=== PATIENT | female | born 1985 | race Caucasian/White ===

== ENCOUNTER 2017-06-05 17:40 | Emergency (ER) | payer MEDICAID ==
[~2017-06-05] VITALS: Ht 172.7 cm; Wt 90.7 kg
--- NOTE | 2017-06-05 18:50 | NUR ---
Pt resting in gurney with eyes closed, easily aroused with verbal stimuli. No s/s of acute distress noted at this time. Pt remains a/o x4, states she is unable to provide a urine specimen at this time.
[2017-06-05 19:13] LABS: BASOPHILS # (AUTO) 0.2 K/uL (0.0-8.0); BASOPHILS % (AUTO) 1.6 % (0.0-2.0); EOSINOPHILS % (AUTO) 0.2 % (0.0-7.0); HEMATOCRIT 42.7 % (37-47); HEMOGLOBIN 14.4 G/DL (12.0-16.0); LYMPHOCYTES # (AUTO) 1.5 K/UL (0.8-4.8); LYMPHOCYTES % (AUTO) 12.7 % (20.5-51.5); MEAN CORPUSCULAR HGB CONC 34 g/dL (32.0-37.0); MEAN CORPUSCULAR VOLUME 92.3 FL (81.0-99.0); MONOCYTES # (AUTO) 0.9 K/UL (0.1-1.30); NEUTROPHILS # (AUTO) 9.6 K/UL (1.8-8.9); NEUTROPHILS % (AUTO) 78.5 % (38.5-71.5); PLATELET COUNT (AUTO) 193 K/UL (150-450); RED BLOOD CELL COUNT(AUTO) 4.63 MIL/UL (4.2-5.4); WHITE BLOOD COUNT (AUTO) 12.2 K/UL (4.0-11.2)
--- NOTE | 2017-06-05 19:15 | NUR ---
Received report from SILVIA Mcfarland. Assumed care of pt at this time. Pt resting in position of comfort for self. No obvious signs of distress at this time.
[2017-06-05 19:27] LABS: ETHANOL < 3 MG/DL (0-0)
[2017-06-05 19:31] LABS: ACETAMINOPHEN < 2.0 ug/mL (10-30); ALANINE AMINOTRANSFERASE 16 U/L (14-59); ALKALINE PHOSPHATASE 46 U/L (50-136); ASPARTATE AMINOTRANSFERASE 14 U/L (15-37); BILIRUBIN,DIRECT 0.1 mg/dL (0.0-0.2); BILIRUBIN,TOTAL 0.4 mg/dL (0.2-1.0); CARBON DIOXIDE 24 mmol/L (21-32); CHLORIDE 104 mmol/L (98-107); CREATININE 0.9 mg/dL (0.6-1.3); GLUCOSE 112 mg/dL (74-106); POTASSIUM 4.2 mmol/L (3.5-5.1); TOTAL PROTEIN, SERUM 6.9 g/dL (6.4-8.2); UREA NITROGEN, BLOOD 5 mg/dL (7-18)
--- NOTE | 2017-06-05 19:47 | NUR ---
Pt ambulated to br with steady gait. UA collected and sent. Pt returned to bed, resting in position of comfort for self. No complaints at this time.
--- NOTE | 2017-06-05 19:55 | NUR ---
Pt medically cleared for psych evaluation
--- NOTE | 2017-06-05 19:57 | NUR ---
Spoke with Eusebio and Art for psych eval for gravely disable per Dr. Mejia, awaiting call back.
--- NOTE | 2017-06-05 19:59 | NUR ---
Art to do the psych evaluation, eta approx [id number]. Dr. Mejia notified
[2017-06-05 20:02] LABS: *BILIRUBIN,URIN NEGATIVE (NEGATIVE); *BLOOD, URINE 3+ (NEGATIVE); *COLOR,URINE YELLOW (YELLOW); *KETONES,URINE NEGATIVE (NEGATIVE); *PROTEIN,URINE NEGATIVE (NEGATIVE); *UROBILINOGEN,URINE 0.2 E.U./dl (NORMAL); LEUKOCYTE ESTERASE ,URINE 2+ (NEGATIVE); NITRITE, URINE NEGATIVE (NEGATIVE); UGLUCOSE NEGATIVE (NEGATIVE)
[2017-06-05 20:05] LABS: *CLARITY,URINE SLIGHTLY HAZY (CLEAR); *URINE HCG, QUAL NEGATIVE (NEGATIVE)
[2017-06-05 20:09] LABS: BACTERIA,URINE MODERATE /HPF (NONE SEEN); SQUAMOUS EPITHELIAL CELL,UR MODERATE /HPF (NONE SEEN)
[2017-06-05 20:15] LABS: *AMPHETAMINE, URINE POSITIVE (NEGATIVE); *BARBITURATE, URINE NEGATIVE (NEGATIVE); *CANNABINOID, URINE NEGATIVE (NEGATIVE); *COCCAINE, URINE NEGATIVE (NEGATIVE); *OPIATE, URINE NEGATIVE (NEGATIVE); *PHENCYCLIDINE SCREEN,URINE NEGATIVE (NEGATIVE)
--- NOTE | 2017-06-05 20:29 | NUR ---
Pt is Jey hathaway Called [facility], awaiting call back.
--- NOTE | 2017-06-05 20:30 | NUR ---
DR JARAMILLO SPOKE WITH [facility] AND WAS TOLD PATIENT DID NOT HAVE PSYCH BENEFIT THROUGH [facility]. OK TO CALL SHAMIKA CALLEJAS TO EVAL PATIENT
--- NOTE | 2017-06-05 20:39 | NUR ---
Dr. Mejia speaking with [facility]
--- NOTE | 2017-06-05 20:48 | NUR ---
SHAMIKA CALLEJAS FROM [facility] WILL EVAL PATIENT. ETA 1HR
--- NOTE | 2017-06-05 21:43 | NUR ---
Eusebio at bedside for pyjunito eval.
--- NOTE | 2017-06-05 22:30 | NUR ---
Pt stable for discharge per Eusebio machine tailer. Plan of care for pt per Dr. Mejia and Eusebio machine tailer pt to be given seroquel and trazodone to sleep the rest of tonight and discharged in the morning. Pt calm and cooperative at this time with no complaints.
[2017-06-05] MEDS ORDERED: QUETIAPINE FUMARATE 25 MG TABLET PO ONE (22:45)
[2017-06-05] MEDS ORDERED: TRAZODONE 50 MG TABLET PO ONE (22:45)
--- NOTE | 2017-06-05 22:55 | NUR ---
Pt given medications and repositioned for comfort. Pt calm and cooperative. Resp even and unlabored. No obvious signs of distress at this time.
--- NOTE | 2017-06-06 00:45 | NUR ---
Pt resting in position of comfort for self with eyes closed, resp even and unlabored. Pt appears asleep. No obvious signs of distress at this time.
--- NOTE | 2017-06-06 03:29 | NUR ---
No change in pt's condition or status since last assesment. No obvious signs of distress at this time.
--- NOTE | 2017-06-06 07:06 | NUR ---
Pt awake, alert and oriented. Pt stable for discharge per MD. Pt given ACI. Pt verbalized understanding of dc instructions. Pt ambulated out of er with steady gait.
[2017-06-06 07:07] VITALS: BP 126/58
== END 2017-06-06 07:07 | disposition home or self-care (01) ==
LOC: ER 17:40
DX: F29 Unspecified psychosis not due to a substance or known physiological condition (principal); F15.10 Other stimulant abuse, uncomplicated; F31.9 Bipolar disorder, unspecified; F43.10 Post-traumatic stress disorder, unspecified; Z59.0 Homelessness; F17.200 Nicotine dependence, unspecified, uncomplicated; Z88.0 Allergy status to penicillin
CPT/HCPCS: 36415; 80307; 84703; 85025; A4663; G0480; G0480-TC

== ENCOUNTER 2017-06-07 00:29 | Emergency (ER) | payer MEDICAID ==
[~2017-06-07] VITALS: Ht 172.7 cm; Wt 90.7 kg
[2017-06-07 01:26] LABS: BASOPHILS % (AUTO) 0.6 % (0.0-2.0); EOSINOPHILS # (AUTO) 0.1 K/uL (0.0-0.7); EOSINOPHILS % (AUTO) 1.1 % (0.0-7.0); HEMATOCRIT 40.5 % (37-47); HEMOGLOBIN 13.8 G/DL (12.0-16.0); LYMPHOCYTES # (AUTO) 2.2 K/UL (0.8-4.8); MEAN CORPUSCULAR HEMOGLOBIN 31.4 UUG (27.0-31.0); MEAN CORPUSCULAR HGB CONC 34 g/dL (32.0-37.0); MONOCYTES # (AUTO) 0.8 K/UL (0.1-1.30); MONOCYTES % (AUTO) 9.1 % (0.0-11.0); NEUTROPHILS # (AUTO) 5.2 K/UL (1.8-8.9); NEUTROPHILS % (AUTO) 62.2 % (38.5-71.5); PLATELET COUNT (AUTO) 173 K/UL (150-450); RED BLOOD CELL COUNT(AUTO) 4.41 MIL/UL (4.2-5.4); WHITE BLOOD COUNT (AUTO) 8.3 K/UL (4.0-11.2)
[2017-06-07 01:33] LABS: POTASSIUM 3.2 mmol/L (3.5-5.1)
[2017-06-07 01:44] LABS: ETHANOL < 3 MG/DL (0-0)
[2017-06-07 01:45] LABS: CREATINE KINASE, TOTAL 65 U/L (26-192)
[2017-06-07] MEDS ORDERED: POTASSIUM CHLORIDE 20 MEQ TAB.PRT.SR PO ONE (02:15)
[2017-06-07] MEDS ORDERED: POTASSIUM CHLORIDE 20 MEQ TAB.PRT.SR ONE (02:25)
--- NOTE | 2017-06-07 03:15 | NUR ---
Patient given written and verbal discharge instructions. Patient verbalizes understanding of instructions. Patient is ambulatory with steady gait. Refuses offer of care home placement. Patient given list of available shelters in surrounding area.
== END 2017-06-07 03:18 | disposition home or self-care (01) ==
LOC: ER 00:34
DX: R55 Syncope and collapse (principal); E87.6 Hypokalemia; F31.9 Bipolar disorder, unspecified; F15.10 Other stimulant abuse, uncomplicated; Z59.0 Homelessness
CPT/HCPCS: 36415; 70450; 80048; 82550; 82962; 84703; 85025; 85730; 93005; 99285; A4663; G0480